=== PATIENT | male | born 1995 | race African-American/Black ===

== ENCOUNTER 2020-05-01 08:00 | Emergency (ER) | payer OTHER ==
[~2020-05-01] VITALS: Ht 170.2 cm; Wt 79.4 kg
[2020-05-01 08:11] VITALS: BP 134/93
--- NOTE | 2020-05-01 08:12 | NUR ---
ED Nurse Note:pt. came from home with c/o right upper jaw pain, had surgery there in 2018
[2020-05-01] MEDS ORDERED: HYDROcodone/Acetamin 5/325 tab ORAL ONE (08:30)
[2020-05-01] MEDS ORDERED: Amoxicillin 125mg/5ml susp 80ml ORAL ONE (08:30)
[2020-05-01] MEDS ORDERED: AMOXICILLI250 MG/5 M ORAL (08:40)
[2020-05-01] MEDS ORDERED: ACETAMINOPHEN-1 EAC1 ORAL ×2 (08:40→08:41)
[2020-05-01 08:45] VITALS: BP 134/93
--- NOTE | 2020-05-01 08:45 | NUR ---
ED Nurse Note: Pt cleared by health care Provider for discharge. DC instructions/prescription was given and explained to pt and verbalized understanding of teachings. All medical deviecs such as ID band removed. Pt is AAO x4, ambulatory and left with all personal belongings.
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
== END 2020-05-01 08:45 | disposition home or self-care (01) ==
LOC: EMR 08:20
DX: K08.89 Other specified disorders of teeth and supporting structures (principal)
CPT/HCPCS: 99282